=== PATIENT | female | born 1975 | race Caucasian/White ===

== ENCOUNTER 2016-09-16 22:50 | Emergency (ER) | payer OTHER ==
--- NOTE | 2016-09-17 05:15 | DIAGNOSTIC IMAGING REPORT ---
PROCEDURE: XR CHEST 1 VIEW INDICATION: CHEST PAIN TECHNIQUE: Portable AP view 11:25 p.m. COMPARISON: None. FINDINGS: Poor inspiration but lungs are clear. Heart and mediastinum are normal. Thorax is normal. IMPRESSION: 1. Poor inspiration. No acute changes.
--- NOTE | 2016-09-17 05:52 | DIAGNOSTIC IMAGING REPORT ---
PROCEDURE: US ABDOMEN ULTRASOUND-LIMITED INDICATION: EPIGASTRIC ABDOMINAL PAIN TECHNIQUE: Ceballos scale and color Doppler sonographic images of the abdomen were obtained. COMPARISON: Abdominal ultrasound 09/22/2008 FINDINGS: Enlarged liver (22 cm) with diffuse increased echogenicity, with focal sparing adjacent to the gallbladder. Normal gallbladder and CBD (5.5 mm). Negative Velazquez's sign. Pancreas normal as visualized. Aorta and IVC are patent. Normal hepatopetal flow. Normal right kidney measures 10.9 cm. IMPRESSION: 1. Hepatomegaly with steatosis
--- NOTE | 2016-09-17 06:23 | ED CLINICAL REPORT ---
Clinical Report - Physicians/Mid Levels [facility] [address] [place] [address] 09/16/2016 22:51 Patient: JULIA JACOB Arrived- By private vehicle. Historian- patient. HISTORY OF PRESENT ILLNESS Chief Complaint: CHEST PAIN. At its maximum, severity described as severe. When seen in the E.D., severity described as severe. Modifying factors. Not worsened by anything. Not relieved by anything. This started today and is still present (staying the same). It was abrupt in onset and has been constant but is not gone now. Onset during cleaning the house. It is described as burning and it is described as located in the central chest area. No radiation. No nausea, vomiting, difficulty breathing or diaphoresis. No additional chest pain. (reports no hemoptysis, recent trauma, or unilateral leg swelling.). Similar symptoms previously: None. Recent medical care: Not recently seen/assessed. REVIEW OF SYSTEMS No fever or chills. All systems otherwise negative, except as recorded above. PAST HISTORY See nurses notes. Denies the following risk factors for DVT/PE - history of DVT and pulmonary embolism, recent surgery, recent IL and congestive heart failure. Denies the following risk factors for DVT/PE - cancer, clotting disorder, estrogens, obesity and immobility. Denies the following risk factors for DVT/PE - advanced in age and vena cava filter. SOCIAL HISTORY Never smoker. No alcohol use or drug use. No recent travel. Is a local resident. FAMILY HISTORY History of heart disease (father's side of the family "everyone had hear problems"). ADDITIONAL NOTES The nursing notes have been reviewed. PHYSICAL EXAM Vital Signs: 09/16/2016 22:55 BP: 130/82. HR: 79. RR: 18. O2 saturation: 100%. Temp: 98 F. Blood pressure normal. Oxygen saturation normal. Appearance: Alert. Oriented X3. No acute distress. Eyes: Pupils equal, round and reactive to light. Eyes normal inspection. ENT: Ears normal. Nose normal. Pharynx normal. Neck: Normal inspection. Neck supple. CVS: Normal heart rate and rhythm. Heart sounds normal. Pulses normal. Respiratory: No respiratory distress. Breath sounds normal. Chest nontender. No rales, rhonchi or wheezes. Abdomen: Soft and nontender. Bowel sounds normal. Back: Normal external inspection. Skin: Skin warm and dry. Normal skin color. No rash. Normal skin turgor. Extremities: Extremities exhibit normal ROM. No lower extremity edema. LABS, X-RAYS, AND EKG EKG: No acute process. No acute ischemia. Normal sinus rhythm. Rate: 80. Normal P waves. First-degree atrioventricular block. Normal QRS complex. Normal axis. Normal ST and T waves, QT and QTc. The study has been interpreted contemporaneously. The study has been independently viewed by me. The EKG appears to be a good tracing. Chest X-ray: No acute disease. Normal lung markings present. Normal heart size. No infiltrate. Views: PA. The X-rays were independently viewed by me and interpreted contemporaneously by me. Prior films were not available for comparison. Abdominal Sonogram: (PROCEDURE: US ABDOMEN ULTRASOUND-LIMITED INDICATION: EPIGASTRIC ABDOMINAL PAIN TECHNIQUE: Ceballos scale and color Doppler sonographic images of the abdomen were obtained. COMPARISON: Abdominal ultrasound 09/22/2008 FINDINGS: Enlarged liver (22 cm) with diffuse increased echogenicity, with focal sparing adjacent to the gallbladder. Normal gallbladder and CBD (5.5 mm). Negative Velazquez's sign. Pancreas normal as visualized. Aorta and IVC are patent. Normal hepatopetal flow. Normal right kidney measures 10.9 cm. IMPRESSION: 1. Hepatomegaly with steatosis). The study was independently viewed by me and interpreted contemporaneously by me. The study was discussed with the radiologist (via pacs after patient discharged). Laboratory Tests: Troponin-I: (SUZI: 09/17/2016 02:10) ( [facility] [address] 09/17/2016 02:33) Final results Test Result Flag Units (Reference) TROPONIN I <0.05 ng/mL (0.00-1.5) TROPONIN REFERENCE RANGE:<0.1 NEGATIVE0.1-1.5 INDETERMINANT>1.5 POSITIVE Troponin-I: (SUZI: 09/17/2016 00:15) ( NygRcvd 09/17/2016 01:51) Final results Test Result Flag Units (Reference) TROPONIN I 0.05 ng/mL (0.00-1.5) TROPONIN REFERENCE RANGE:<0.1 NEGATIVE0.1-1.5 INDETERMINANT>1.5 POSITIVE CBC w Diff: (SUZI: 09/16/2016 23:10) ( MsgRcvd 09/16/2016 23:27) Final results Test Result Flag Units (Reference) WHITE BLOOD COUNT 9.9 K/uL (4.5-11.5) RED BLOOD COUNT 4.41 M/uL (4.00-5.20) HEMOGLOBIN 12.2 gm/dL (12.0-16.0) HEMATOCRIT 36.3 % (36.0-46.0) MEAN CELL VOLUME 82 fL (80-100) MEAN CORPUSCULAR HGB 28 pg (26-34) MEAN CORPUSCULAR HGB CONC 34 g/dL (31-37) RED CELL DISTRIBUTION WIDTH 13.9 % (11.6-14.8) PLATELET COUNT 205 K/uL (150-400) NEUTROPHIL % 52.5 % (50-75) LYMPH % 41.0 H % (25-40) MONO % 4.9 % (3-14) EOSINOPHIL % 1.2 % (0-4) BASOPHIL % 0.4 % (0-2) [id number]: (SUZI: 09/16/2016 23:10) ( MsgRcvd 09/16/2016 23:32) Final results Test Result Flag Units (Reference) D-DIMER QUANTITATIVE 0.37 ug/mLFEU (0.27-0.52) The primary value of this quantitative assay relates toits negative predictive value (i.e. exclusion) of pulmonaryembolism/deep vein thrombosis/DIC.Elevated levels of d-dimer may also occur with:, age, cancer, inflammation, liver disease,post-op, infection, hematoma, coronary disease, peripheralarteriopathy, bleeding disorders and thrombolytic treatment.Results should be correlated with other clinical andradiological data.Testing Methodology: Latex Immunoassay Troponin-I: (SUZI: 09/16/2016 23:33) ( MsgRcvd 09/16/2016 23:58) Final results Test Result Flag Units (Reference) TROPONIN I <0.05 L ng/mL (0.00-1.5) TROPONIN REFERENCE RANGE:<0.1 NEGATIVE0.1-1.5 INDETERMINANT>1.5 POSITIVE CMP: (SUZI: 09/16/2016 23:10) ( MsgRcvd 09/16/2016 23:34) Final results Test Result Flag Units (Reference) GLUCOSE 131 H mg/dL (70-110) BUN 15 mg/dL (7-18) CREATININE 1.2 mg/dL (0.6-1.3) Estimated GFR 52.36 mL/min Estimated GFR- >60 mL/min Note: Persistent reduction over 3 months in eGFR<60 mL/min/1.73 m2 defines CKD. Patients with eGFR values>=60 mL/min/1.73 m2 may also have CKD if evidence ofpersistent proteinuria. Additional information may be foundat [email or web address].org. SODIUM 139 mmol/L (136-145) POTASSIUM 3.0 L mmol/L (3.5-5.1) CHLORIDE 102 mmol/L (98-107) CARBON DIOXIDE 24 mmol/L (21-32) CALCIUM 8.6 mg/dL (8.5-10.1) TOTAL PROTEIN 7.5 g/dL (6.4-8.2) ALBUMIN 3.6 g/dL (3.3-5.0) BILIRUBIN, TOTAL 0.2 mg/dL (0.0-1.0) ALKALINE PHOSPHATASE 80 U/L (46-116) AST (SGOT) 14 L U/L (15-37) ALT (SGPT) 25 U/L (12-78) . PROGRESS AND PROCEDURES Course of Care: the patient is a pleasant 41-year-old female with no pertinent past medical history presenting for evaThe patient has somewhat atypical symptoms of chest pain. Patient is describing a burning sensation that starts from the lower chest and radiates up towards to the top of her chest. Onset of symptoms are relatively recent. Patient will need to set the troponin for evaluation of acute myocardial infarction. the patient was given a GI cocktail for possible reflux as the culprit for her symptoms. Patient will be evaluated after the medication has been provided. Patient is agreeable to the treatment and plan. Workup is noted to be negative at this point in time. EKG and chest x-ray as well as a first set of laboratory studies are unremarkable. The patient does have slight elevation in liver enzymes however patient is familiar with these and states that she has had a history of this. The GI cocktail did not help with her symptoms however and is requesting alternative types of treatments for the discomfort. Second troponin was resulted and also noted to be negative. The patient states that the chest pain is gone however is now reporting pain located to the epigastric area. She'll be evaluated with ultrasound for possible atypical presentation of acute cholecystitis. Patient is agreeable to the treatment plan. Different medications have been ordered for the patient's discomfort. An additional troponin is also been drawn as the patient will be here in the emergency department for a another several hour period of time while the ultrasound is being resulted. We needed to call in certified appliance service technician in for the procedure to be done. Patient is agreeable to the wait time. Workup does not show any acute abnormalities other than hepatic steatosis. No signs of acute cholecystitis. Patient was reevaluated and found to have improvement with her symptoms. Patient is a low-risk for any acute cardiac event. Patient is a good outpatient candidate. Referral to cardiology provided. Patient also noted to have referral to cardiology from her primary care Dr. Further information was given if the patient encountered difficulties with scheduling the stress test. Patient is 41 years old. Patient is also noted to be PE RC negative. Do not feel further workup for pulmonary embolism is warranted at this time. Discussed with the patient her workup, diagnosis, home care, follow-up, and return precautions. All questions have been answered. The patient expressed understanding of these instructions and was agreeable to them. Consult obtained. Cardiology - Dr. Delarosa. Disposition: Discharged. Condition: good. CLINICAL IMPRESSION Acute epigastric abdominal pain. Atypical chest pain .12 lead EKG performed. INSTRUCTIONS Warnings: GENERAL WARNINGS: Return or contact your physician immediately if your condition worsens or changes unexpectedly, if not improving as expected, or if other problems arise. SPECIFICALLY, return if you develop chest, neck, jaw, shoulder, arm, or back pain, difficulty breathing, a fluttering sensation in your chest, lightheadedness, fainting, excessive fatigue, or sudden sweating. Your Current Medications: CONTINUE TAKING THE FOLLOWING MEDICATIONS: Amitriptyline HCl Oral : 25 mg daily. Estradiol Oral : daily. Hydrochlorothiazide Oral. Levothyroxine Sodium Oral : daily, unknown dose. Lisinopril Oral. Progesterone*. Prescription Medications: Pepcid 20 mg: take 1 orally every 12 hours as needed for indigestion, upset stomach or heartburn. Dispense twenty (20). No refills. Substitution is permissible. OTC Medications: Aspirin 81 mg (available over the counter): take 1 orally every 24 hours. Dispense thirty (30). No refills. Follow-up: Return to the emergency department as needed. Follow up with a trade mark examiner as scheduled. Follow up with your doctor in three days. Reason for referral: recheck today's concerns. Follow up with doctor Dr. Loera. Reason for referral: Contact if you can not get your stress test in 2 - 3 days. Their number is . Summary of care provided to patient via paper. Screening today revealed the patient's blood pressure to be in the normal range. The patient should follow up with a primary care provider for blood pressure management. Understanding of the discharge instructions verbalized by patient. (Electronically signed by Golden Hemphill Dr. 09/24/2016 0:52)
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
--- NOTE | 2016-09-17 06:23 | ED ORDER SUMMARY ---
..... Patient: JULIA JACOB OrderSheet [facility] VisitID: [id number] [address] [place] [address] 41y, F Registration Date/Time: 09/16/2016 ORDER SHEET Weight: 99.7 kg (stated) Allergies: No Known Drug Allergy GENERAL ORDERS: CBC w Diff Urgent (23:17 09/16/2016 EInddagoberto R.N. verbal order read back to Ja Schaefer) (Ack 23:20 Tracy) (23:23 LMuller) CMP Urgent (23:17 09/16/2016 EInddagoberto R.N. verbal order read back to Ja Schaefer) (Ack 23:20 Tracy) (23:23 LMuller) D-Dimer Urgent (23:17 09/16/2016 EIjocelin Welch.N. verbal order read back to Ja Schaefer) (Ack 23:21 Tracy) (23:23 LMuller) EKG - ER Stat (23:17 09/16/2016 EIjocelin R.N. verbal order read back to Ja Schaefer) (23:20 Tracy) Chest 1V Urgent (23:18 09/16/2016 EIjocelin R.N. verbal order read back to Ja Schaefer) (Ack 23:21 Tracy) (23:22 LMuller) Troponin-I Urgent (23:32 09/16/2016 Ja Schaefer) (23:33 LMuller) Troponin-I (redraw 2 hours after first drawn) Urgent (00:52 09/17/2016 Ja Schaefer) (Ack 0:59 LMuller) (1:27 EIjocelin CastilloN.) Troponin-I Urgent (02:02 09/17/2016 Ja Schaefer) (Ack 2:07 LMuller) (2:12 LMuller) US Abdomen Limited (No) Urgent (02:57 09/17/2016 Ja Schaefer) (Ack 3:08 LMuller) (4:40 LMuller) Lipase Urgent (02:58 09/17/2016 Ja Schaefer) (Ack 3:08 LMuller) (3:09 LMuller) Consult - Rehab Assistant (02:58 09/17/2016 Ja Schaefer) (Ack 3:08 LMuller) (3:08 LMuller) MEDICATION ORDERS: GI Cocktail WHITE PO 30 mL (NOW) (23:26 09/16/2016 Ja Schaefer) (23:40 EInderisai R.N.) Potassium Chloride PO 60 meq (NOW) (00:59 09/17/2016 EInderisai R.N. verbal order read back to Ja Schaefer) (1:00 EInddagoberto R.N.) Zofran ODT PO 4 mg (NOW) (00:59 09/17/2016 EIjocelin R.N. verbal order read back to Ja Schaefer) (1:01 EInderisai R.N.) NitroGLYCERIN SL 0.4 mg (once now) (02:37 09/17/2016 Ja Schaefer) (2:39 EInderisai R.N.) Aspirin PO 325 mg (Do not crush or chew, NOW) (06:01 09/17/2016 Ja Schaefer) (Cancelled: Patient Refusal6:33 EInderisai R.N.) IV FLUIDS: IV Saline Lock (23:21 09/16/2016 Kian R.NJeffrey verbal order read back to Ja Schaefer) (23:21 EInderdeepakzen R.N.) Valium IV 5 mg (HIGH ALERT MEDICATION, NOW) (01:09 09/17/2016 Ja Schaefer) (Cancelled: Other1:10 Ja Schaefer) Morphine IV 4 mg (HIGH ALERT MEDICATION, NOW) (01:20 09/17/2016 Ja Schaefer) (1:26 EInderisai R.N.) Pepcid IV 20 mg/50mL (NOW) (01:20 09/17/2016 Ja Schaefer) (1:27 EInderbitzen R.N.) ORDER SHEET NOTES: [Electronically signed by Aicha Valadez R.N. (06:35 09/17/2016)] [Electronically signed by Golden Hemphill Dr. (00:52 09/24/2016)] [Electronically locked/signed by Aicha Valadez R.N. (06:35 09/17/2016)]
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
--- NOTE | 2016-09-17 06:23 | ED ORDER SUMMARY ---
..... Patient: JULIA JACOB OrderSheet [facility] VisitID: [id number] [address] [place] [address] 41y, F Registration Date/Time: 09/16/2016 ORDER SHEET Weight: 99.7 kg (stated) Allergies: No Known Drug Allergy GENERAL ORDERS: CBC w Diff Urgent (23:17 09/16/2016 EInddagoberto R.N. verbal order read back to Ja Schaefer) (Ack 23:20 Tracy) (23:23 LMuller) CMP Urgent (23:17 09/16/2016 EInddagoberto R.N. verbal order read back to Ja Schaefer) (Ack 23:20 Tracy) (23:23 LMuller) D-Dimer Urgent (23:17 09/16/2016 EIjocelin Welch.N. verbal order read back to Ja Schaefer) (Ack 23:21 Tracy) (23:23 LMuller) EKG - ER Stat (23:17 09/16/2016 EIjocelin R.N. verbal order read back to Ja Schaefer) (23:20 Tracy) Chest 1V Urgent (23:18 09/16/2016 EIjocelin R.N. verbal order read back to Ja Schaefer) (Ack 23:21 Tracy) (23:22 LMuller) Troponin-I Urgent (23:32 09/16/2016 Ja Schaefer) (23:33 LMuller) Troponin-I (redraw 2 hours after first drawn) Urgent (00:52 09/17/2016 Ja Schaefer) (Ack 0:59 LMuller) (1:27 EIjocelin CastilloN.) Troponin-I Urgent (02:02 09/17/2016 Ja Schaefer) (Ack 2:07 LMuller) (2:12 LMuller) US Abdomen Limited (No) Urgent (02:57 09/17/2016 Ja Schaefer) (Ack 3:08 LMuller) (4:40 LMuller) Lipase Urgent (02:58 09/17/2016 Ja Schaefer) (Ack 3:08 LMuller) (3:09 LMuller) Consult - Felt Hanger (02:58 09/17/2016 Ja Schaefer) (Ack 3:08 LMuller) (3:08 LMuller) MEDICATION ORDERS: GI Cocktail WHITE PO 30 mL (NOW) (23:26 09/16/2016 Ja Schaefer) (23:40 EInderisai R.N.) Potassium Chloride PO 60 meq (NOW) (00:59 09/17/2016 EInderisai R.N. verbal order read back to Ja Schaefer) (1:00 EInddagoberto R.N.) Zofran ODT PO 4 mg (NOW) (00:59 09/17/2016 EIjocelin R.N. verbal order read back to Ja Schaefer) (1:01 EInderisai R.N.) NitroGLYCERIN SL 0.4 mg (once now) (02:37 09/17/2016 Ja Schaefer) (2:39 EInderisai R.N.) Aspirin PO 325 mg (Do not crush or chew, NOW) (06:01 09/17/2016 Ja Schaefer) (Cancelled: Patient Refusal6:33 EInderisai R.N.) IV FLUIDS: IV Saline Lock (23:21 09/16/2016 Kian R.NJeffrey verbal order read back to Ja Schaefer) (23:21 EInderdeepakzen R.N.) Valium IV 5 mg (HIGH ALERT MEDICATION, NOW) (01:09 09/17/2016 Ja Schaefer) (Cancelled: Other1:10 Ja Schaefer) Morphine IV 4 mg (HIGH ALERT MEDICATION, NOW) (01:20 09/17/2016 Ja Schaefer) (1:26 EInderisai R.N.) Pepcid IV 20 mg/50mL (NOW) (01:20 09/17/2016 Ja Schaefer) (1:27 EInderbitzen R.N.) ORDER SHEET NOTES: [Electronically signed by Aicha Valadez R.N. (06:35 09/17/2016)] [Electronically signed by Golden Hemphill Dr. (00:52 09/24/2016)] [Electronically locked/signed by Aicha Valadez R.N. (06:35 09/17/2016)]
--- NOTE | 2016-09-24 00:53 | ED DISCHARGE INSTRUCTIONS ---
Patient: JULIA JACOB General Instructions [facility] VisitID: [id number] [place] [address] 41y, F Registration Date/Time: 09/16/2016 Acute epigastric abdominal pain. Atypical chest pain .12 lead EKG performed. INSTRUCTIONS Warnings: GENERAL WARNINGS: Return or contact your physician immediately if your condition worsens or changes unexpectedly, if not improving as expected, or if other problems arise. SPECIFICALLY, return if you develop chest, neck, jaw, shoulder, arm, or back pain, difficulty breathing, a fluttering sensation in your chest, lightheadedness, fainting, excessive fatigue, or sudden sweating. Your Current Medications: CONTINUE TAKING THE FOLLOWING MEDICATIONS: Amitriptyline HCl Oral : 25 mg daily. Estradiol Oral : daily. Hydrochlorothiazide Oral. Levothyroxine Sodium Oral : daily, unknown dose. Lisinopril Oral. Progesterone*. Prescription Medications: Pepcid 20 mg: take 1 orally every 12 hours as needed for indigestion, upset stomach or heartburn. Dispense twenty (20). No refills. Substitution is permissible. OTC Medications: Aspirin 81 mg (available over the counter): take 1 orally every 24 hours. Dispense thirty (30). No refills. Follow-up: Return to the emergency department as needed. Follow up with a diabetes trainer as scheduled. Follow up with your doctor in three days. Reason for referral: recheck today's concerns. Follow up with doctor Dr. Loera. Reason for referral: Contact if you can not get your stress test in 2 - 3 days. Their number is . Summary of care provided to patient via paper. Screening today revealed the patient's blood pressure to be in the normal range. The patient should follow up with a primary care provider for blood pressure management. Understanding of the discharge instructions verbalized by patient. ADDITIONAL INFORMATION Chest Pain, Uncertain Cause Chest pain can happen for a number of reasons. Sometimes the cause can not be determined. If yourcondition does not seem serious, and your pain does not appear to be coming from your heart, your doctor may recommend watching it closely. Sometimes the signs of a serious problem take more time to appear. Therefore, watch for the warning signs listed below. Home care After your visit, follow these recommendations: Rest today and avoid strenuous activity. Take any prescribed medicine as directed. Follow-up care Follow up with your doctor or this facility as instructed or if you do not start to feel better within 24 hours. Call 911 Get immediate medical attention if any of the following occur: A change in the type of pain: if it feels different, becomes more severe, lasts longer, or begins to spread into your shoulder, arm, neck, jaw or back Shortness of breath or increased pain with breathing Weakness, dizziness, or fainting Rapid heart beat Get prompt medical attention Call your doctor right away if any of the following occur: Cough with dark colored sputum (phlegm) or blood Fever of 100.4F(38C) or higher, or as directed by your health care provider Swelling, pain or redness in one leg Abdominal Pain,Possible Appendicitis [Repeat Exam, Female] Based on your visit today, the exact cause of your abdominal (stomach) pain is not certain. However, you do have some of the early signs of APPENDICITIS. Early in an appendix infection the symptoms can be similar to a simple "stomach ache" or "stomach flu". Therefore, the diagnosis can be hard to make. Since an appendix infection is a serious condition, it is important to know if this is the cause of your symptoms. WAITING for more time to pass and repeating the exam is the best way to find out whether you have appendicitis. Within the next 12-24 hours the cause of your stomach pain should become clear. It is important for you to watch for any new symptoms or worsening of your condition. (See below). Home Care: Rest until your next exam. No strenuous activities. Eat a diet low in fiber (called a low-residue diet). Foods allowed include refined breads, white rice, fruit and vegetable juices without pulp, tender meats. These foods will pass more easily through the intestine. Avoid whole-grain foods, whole fruits and vegetables, meats, seeds and nuts, fried or fatty foods, dairy, alcohol and spicy foods until your symptoms go away. In some cases, you may be asked not to eat or drink anything until you are re-examined. Return for another exam exactly as directed. Follow Up with your doctor or this facility as directed. Get Prompt Medical Attention if any of the following occur: Pain gets worse or moves to the right lower abdomen New or worsening vomiting or diarrhea Swelling of the abdomen Unable to pass stool for more than three days Fever of 100.4F (38C) or higher, or as directed by your healthcare provider Blood in vomit or bowel movements (dark red or black color) Weakness, dizziness or fainting Unexpected vaginal bleeding Famotidine Oral tablet What is this medicine? FAMOTIDINE (fa ROHIT ti dank) is a type of antihistamine that blocks the release of stomach acid. It is used to treat stomach or intestinal ulcers. It can also relieve heartburn from acid reflux. How should I use this medicine? Take this medicine by mouth with a glass of water. Follow the directions on the prescription label. If you only take this medicine once a day, take it at bedtime. Take your doses at regular intervals. Do not take your medicine more often than directed. Talk to your telecommunications linesworker regarding the use of this medicine in children. Special care may be needed. What side effects may I notice from receiving this medicine? Side effects that you should report to your doctor or health nurse behavioral health care as soon as possible: agitation, nervousness confusion hallucinations skin rash, itching Side effects that usually do not require medical attention (report to your doctor or health nurse behavioral health care if they continue or are bothersome): constipation diarrhea dizziness headache What may interact with this medicine? delavirdine itraconazole ketoconazole What if I miss a dose? If you miss a dose, take it as soon as you can. If it is almost time for your next dose, take only that dose. Do not take double or extra doses. Where should I keep my medicine? Keep out of the reach of children. Store at room temperature between 15 and 30 degrees C (59 and 86 degrees F). Do not freeze. Throw away any unused medicine after the expiration date. What should I tell my health care provider before I take this medicine? They need to know if you have any of these conditions: kidney or liver disease trouble swallowing an unusual or allergic reaction to famotidine, other medicines, foods, dyes, or preservatives or trying to get breast-feeding What should I watch for while using this medicine? Tell your doctor or health nurse behavioral health care if your condition does not start to get better or if it gets worse. Finish the full course of tablets prescribed, even if you feel better. Do not take with aspirin, ibuprofen or other antiinflammatory medicines. These can make your condition worse. Do not smoke cigarettes or drink alcohol. These cause irritation in your stomach and can increase the time it will take for ulcers to heal. If you get black, tarry stools or vomit up what looks like coffee grounds, call your doctor or health nurse behavioral health care at once. You may have a bleeding ulcer. Aspirin Oral tablet What is this medicine? ASPIRIN ( pir in) is a pain reliever. It is used to treat mild pain and fever. This medicine is also used as directed by a doctor to prevent and to treat heart attacks, to prevent strokes, and to treat arthritis or inflammation. How should I use this medicine? Take this medicine by mouth with a glass of water. Follow the directions on the package or prescription label. You can take this medicine with or without food. If it upsets your stomach, take it with food. Do not take your medicine more often than directed. Talk to your telecommunications linesworker regarding the use of this medicine in children. While this drug may be prescribed for children as young as 12 years of age for selected conditions, precautions do apply. Children and teenagers should not use this medicine to treat chicken pox or flu symptoms unless directed by a doctor. Patients over 65 years old may have a stronger reaction and need a smaller dose. What side effects may I notice from receiving this medicine? Side effects that you should report to your doctor or health nurse behavioral health care as soon as possible: allergic reactions like skin rash, itching or hives, swelling of the face, lips, or tongue breathing problems changes in hearing, ringing in the ears confusion general ill feeling or flu-like symptoms pain on swallowing redness, blistering, peeling or loosening of the skin, including inside the mouth or nose signs and symptoms of bleeding such as bloody or black, tarry stools; red or dark-brown urine; spitting up blood or brown material that looks like coffee grounds; red spots on the skin; unusual bruising or bleeding from the eye, gums, or nose trouble passing urine or change in the amount of urine unusually weak or tired yellowing of the eyes or skin Side effects that usually do not require medical attention (report to your doctor or health nurse behavioral health care if they continue or are bothersome): diarrhea or constipation nausea, vomiting stomach gas, heartburn What may interact with this medicine? Do not take this medicine with any of the following medications: cidofovir ketorolac probenecid This medicine may also interact with the following medications: alcohol alendronate bismuth subsalicylate flavocoxid herbal supplements like feverfew, garlic, alessia, ginkgo biloba, horse chestnut medicines for diabetes or glaucoma like acetazolamide, methazolamide medicines for gout medicines that treat or prevent blood clots like enoxaparin, heparin, ticlopidine, warfarin other aspirin and aspirin-like medicines NSAIDs, medicines for pain and inflammation, like ibuprofen or naproxen pemetrexed sulfinpyrazone varicella live vaccine What if I miss a dose? If you are taking this medicine on a regular schedule and miss a dose, take it as soon as you can. If it is almost time for your next dose, take only that dose. Do not take double or extra doses. Where should I keep my medicine? Keep out of the reach of children. Store at room temperature between 15 and 30 degrees C (59 and 86 degrees F). Protect from heat and moisture. Do not use this medicine if it has a strong vinegar smell. Throw away any unused medicine after the expiration date. What should I tell my health care provider before I take this medicine? They need to know if you have any of these conditions: anemia asthma bleeding problems child with chickenpox, the flu, or other viral infection diabetes gout if you frequently drink alcohol containing drinks kidney disease liver disease low level of vitamin K lupus smoke tobacco stomach ulcers or other problems an unusual or allergic reaction to aspirin, tartrazine dye, other medicines, dyes, or preservatives or trying to get breast-feeding What should I watch for while using this medicine? If you are treating yourself for pain, tell your doctor or health nurse behavioral health care if the pain lasts more than 10 days, if it gets worse, or if there is a new or different kind of pain. Tell your doctor if you see redness or swelling. Also, check with your doctor if you have a fever that lasts for more than 3 days. Only take this medicine to prevent heart attacks or blood clotting if prescribed by your doctor or health nurse behavioral health care. Do not take aspirin or aspirin-like medicines with this medicine. Too much aspirin can be dangerous. Always read the labels carefully. This medicine can irritate your stomach or cause bleeding problems. Do not smoke cigarettes or drink alcohol while taking this medicine. Do not lie down for 30 minutes after taking this medicine to prevent irritation to your throat. If you are scheduled for any medical or dental procedure, tell your healthcare provider that you are taking this medicine. You may need to stop taking this medicine before the procedure. You have been given the following additional information: Chest Pain, Uncertain Cause Abdominal Pain, Possible Appendicitis (Female) Famotidine Oral tablet Aspirin Oral tablet (Electronically signed by Golden Hemphill Dr. 09/24/2016 0:52)
--- NOTE | 2016-09-24 00:53 | ED MED RECONCILIATION SUMMARY ---
Patient: JULIA JACOB Medication Reconciliation Report [facility] VisitID: [id number] [address] [place] [address] 41y, F Registration Date/Time: 09/16/2016 Weight: 99.7 kg Height/Length: 70 in. BMI: 31.5 ALLERGIES: No Known Drug Allergy The patient's Home Medications are listed below: CONTINUE TAKING THE FOLLOWING MEDICATIONS: Amitriptyline HCl Oral 25 mg, daily Estradiol Oral, daily Hydrochlorothiazide Oral Levothyroxine Sodium Oral, daily, unknown dose Lisinopril Oral Progesterone The source(s) of the original Home Medication information: patient The following Medications were given to the patient in the Emergency Department: GI COCKTAIL WHITE [PO] PO 30 mL, administered: 09/16/2016 11:38:00 PM Potassium Chloride [PO] PO 60 meq, administered: 09/17/2016 1:00:00 AM Zofran ODT [PO] PO 4 mg, administered: 09/17/2016 1:00:00 AM Morphine [IVP] IVP 4 mg, administered: 09/17/2016 1:24:00 AM Pepcid [IVPB] IVPB bolus 0, then 20 mg 150 mL/hr, administered: 09/17/2016 1:25:00 AM Nitroglycerin [SL] SL 0.4 mg, administered: 09/17/2016 2:39:00 AM The following Medications were prescribed to the patient: Pepcid 20 mg: take 1 orally every 12 hours as needed for indigestion, upset stomach or heartburn. Dispense twenty (20). No refills. Substitution is permissible. -- Golden Hemphill Dr. Aspirin 81 mg (available over the counter): take 1 orally every 24 hours. Dispense thirty (30). No refills. -- Golden Hemphill Dr.
--- NOTE | 2016-09-24 00:53 | ED MED RECONCILIATION SUMMARY ---
Patient: JULIA JACOB Medication Reconciliation Report [facility] VisitID: [id number] [address] [place] [address] 41y, F Registration Date/Time: 09/16/2016 Weight: 99.7 kg Height/Length: 70 in. BMI: 31.5 ALLERGIES: No Known Drug Allergy The patient's Home Medications are listed below: CONTINUE TAKING THE FOLLOWING MEDICATIONS: Amitriptyline HCl Oral 25 mg, daily Estradiol Oral, daily Hydrochlorothiazide Oral Levothyroxine Sodium Oral, daily, unknown dose Lisinopril Oral Progesterone The source(s) of the original Home Medication information: patient The following Medications were given to the patient in the Emergency Department: GI COCKTAIL WHITE [PO] PO 30 mL, administered: 09/16/2016 11:38:00 PM Potassium Chloride [PO] PO 60 meq, administered: 09/17/2016 1:00:00 AM Zofran ODT [PO] PO 4 mg, administered: 09/17/2016 1:00:00 AM Morphine [IVP] IVP 4 mg, administered: 09/17/2016 1:24:00 AM Pepcid [IVPB] IVPB bolus 0, then 20 mg 150 mL/hr, administered: 09/17/2016 1:25:00 AM Nitroglycerin [SL] SL 0.4 mg, administered: 09/17/2016 2:39:00 AM The following Medications were prescribed to the patient: Pepcid 20 mg: take 1 orally every 12 hours as needed for indigestion, upset stomach or heartburn. Dispense twenty (20). No refills. Substitution is permissible. -- Golden Hemphill Dr. Aspirin 81 mg (available over the counter): take 1 orally every 24 hours. Dispense thirty (30). No refills. -- Golden Hemphill Dr.
--- NOTE | 2016-09-24 00:53 | ED MAR SUMMARY ---
..... Medication Administration Record [facility] [address] [place] [address] Patient: JULIA JACOB Visit ID: [id number] 41y, F Weight: 99.7 kg Height/Length: 70 in BMI: 31.5 ALLERGIES: No Known Drug Allergy Given 23:38 09/16/2016 Aicha Valadez R.N. Medication Administered: GI COCKTAIL WHITE [PO] (SIMETHICONE), Dose: 30 mL Oral Suspension PO. Medication Ordered: GI Cocktail WHITE PO 30 mL (NOW). Given 01:00 09/17/2016 Aicha Valadez R.N. Medication Administered: POTASSIUM CHLORIDE [PO] (POTASSIUM CHLORIDE ER), Dose: 60 meq Tablets PO. Medication Ordered: Potassium Chloride PO 60 meq (NOW). Given 01:00 09/17/2016 Aicha Valadez R.N. Medication Administered: ZOFRAN ODT [PO] (ONDANSETRON), Dose: 4 mg Oral Disintegrating Tablets PO. Medication Ordered: Zofran ODT PO 4 mg (NOW). Given 01:24 09/17/2016 Aicha Valadez R.N. Medication Administered: MORPHINE [IVP], Dose: 4 mg IVP over 1 minute(s), Site: #1 right hand. Medication Ordered: Morphine IV 4 mg (HIGH ALERT MEDICATION, NOW). Start 01:25 09/17/2016 Aicha Valadez R.N. Medication Administered: PEPCID [IVPB], Dose: 20 mg IVPB over 15 minute(s), Rate: 150 mL/hr, Dispensed: 50 mL bag, Site: #1 right hand. Medication Ordered: Pepcid IV 20 mg/50mL (NOW). Given 02:39 09/17/2016 Aicha Valadez R.N. Medication Administered: NITROGLYCERIN [SL], Dose: 0.4 mg Tablets SL. Medication Ordered: NitroGLYCERIN SL 0.4 mg (once now).
--- NOTE | 2016-09-24 00:53 | ED DISCHARGE INSTRUCTIONS ---
Patient: JULIA JACOB General Instructions [facility] VisitID: [id number] [place] [address] 41y, F Registration Date/Time: 09/16/2016 Acute epigastric abdominal pain. Atypical chest pain .12 lead EKG performed. INSTRUCTIONS Warnings: GENERAL WARNINGS: Return or contact your physician immediately if your condition worsens or changes unexpectedly, if not improving as expected, or if other problems arise. SPECIFICALLY, return if you develop chest, neck, jaw, shoulder, arm, or back pain, difficulty breathing, a fluttering sensation in your chest, lightheadedness, fainting, excessive fatigue, or sudden sweating. Your Current Medications: CONTINUE TAKING THE FOLLOWING MEDICATIONS: Amitriptyline HCl Oral : 25 mg daily. Estradiol Oral : daily. Hydrochlorothiazide Oral. Levothyroxine Sodium Oral : daily, unknown dose. Lisinopril Oral. Progesterone*. Prescription Medications: Pepcid 20 mg: take 1 orally every 12 hours as needed for indigestion, upset stomach or heartburn. Dispense twenty (20). No refills. Substitution is permissible. OTC Medications: Aspirin 81 mg (available over the counter): take 1 orally every 24 hours. Dispense thirty (30). No refills. Follow-up: Return to the emergency department as needed. Follow up with a cutter grind tool technician as scheduled. Follow up with your doctor in three days. Reason for referral: recheck today's concerns. Follow up with doctor Dr. Loera. Reason for referral: Contact if you can not get your stress test in 2 - 3 days. Their number is . Summary of care provided to patient via paper. Screening today revealed the patient's blood pressure to be in the normal range. The patient should follow up with a primary care provider for blood pressure management. Understanding of the discharge instructions verbalized by patient. ADDITIONAL INFORMATION Chest Pain, Uncertain Cause Chest pain can happen for a number of reasons. Sometimes the cause can not be determined. If yourcondition does not seem serious, and your pain does not appear to be coming from your heart, your doctor may recommend watching it closely. Sometimes the signs of a serious problem take more time to appear. Therefore, watch for the warning signs listed below. Home care After your visit, follow these recommendations: Rest today and avoid strenuous activity. Take any prescribed medicine as directed. Follow-up care Follow up with your doctor or this facility as instructed or if you do not start to feel better within 24 hours. Call 911 Get immediate medical attention if any of the following occur: A change in the type of pain: if it feels different, becomes more severe, lasts longer, or begins to spread into your shoulder, arm, neck, jaw or back Shortness of breath or increased pain with breathing Weakness, dizziness, or fainting Rapid heart beat Get prompt medical attention Call your doctor right away if any of the following occur: Cough with dark colored sputum (phlegm) or blood Fever of 100.4F(38C) or higher, or as directed by your health care provider Swelling, pain or redness in one leg Abdominal Pain,Possible Appendicitis [Repeat Exam, Female] Based on your visit today, the exact cause of your abdominal (stomach) pain is not certain. However, you do have some of the early signs of APPENDICITIS. Early in an appendix infection the symptoms can be similar to a simple "stomach ache" or "stomach flu". Therefore, the diagnosis can be hard to make. Since an appendix infection is a serious condition, it is important to know if this is the cause of your symptoms. WAITING for more time to pass and repeating the exam is the best way to find out whether you have appendicitis. Within the next 12-24 hours the cause of your stomach pain should become clear. It is important for you to watch for any new symptoms or worsening of your condition. (See below). Home Care: Rest until your next exam. No strenuous activities. Eat a diet low in fiber (called a low-residue diet). Foods allowed include refined breads, white rice, fruit and vegetable juices without pulp, tender meats. These foods will pass more easily through the intestine. Avoid whole-grain foods, whole fruits and vegetables, meats, seeds and nuts, fried or fatty foods, dairy, alcohol and spicy foods until your symptoms go away. In some cases, you may be asked not to eat or drink anything until you are re-examined. Return for another exam exactly as directed. Follow Up with your doctor or this facility as directed. Get Prompt Medical Attention if any of the following occur: Pain gets worse or moves to the right lower abdomen New or worsening vomiting or diarrhea Swelling of the abdomen Unable to pass stool for more than three days Fever of 100.4F (38C) or higher, or as directed by your healthcare provider Blood in vomit or bowel movements (dark red or black color) Weakness, dizziness or fainting Unexpected vaginal bleeding Famotidine Oral tablet What is this medicine? FAMOTIDINE (fa ROHIT ti dank) is a type of antihistamine that blocks the release of stomach acid. It is used to treat stomach or intestinal ulcers. It can also relieve heartburn from acid reflux. How should I use this medicine? Take this medicine by mouth with a glass of water. Follow the directions on the prescription label. If you only take this medicine once a day, take it at bedtime. Take your doses at regular intervals. Do not take your medicine more often than directed. Talk to your information systems coordinator regarding the use of this medicine in children. Special care may be needed. What side effects may I notice from receiving this medicine? Side effects that you should report to your doctor or health senior care provider as soon as possible: agitation, nervousness confusion hallucinations skin rash, itching Side effects that usually do not require medical attention (report to your doctor or health senior care provider if they continue or are bothersome): constipation diarrhea dizziness headache What may interact with this medicine? delavirdine itraconazole ketoconazole What if I miss a dose? If you miss a dose, take it as soon as you can. If it is almost time for your next dose, take only that dose. Do not take double or extra doses. Where should I keep my medicine? Keep out of the reach of children. Store at room temperature between 15 and 30 degrees C (59 and 86 degrees F). Do not freeze. Throw away any unused medicine after the expiration date. What should I tell my health care provider before I take this medicine? They need to know if you have any of these conditions: kidney or liver disease trouble swallowing an unusual or allergic reaction to famotidine, other medicines, foods, dyes, or preservatives or trying to get breast-feeding What should I watch for while using this medicine? Tell your doctor or health senior care provider if your condition does not start to get better or if it gets worse. Finish the full course of tablets prescribed, even if you feel better. Do not take with aspirin, ibuprofen or other antiinflammatory medicines. These can make your condition worse. Do not smoke cigarettes or drink alcohol. These cause irritation in your stomach and can increase the time it will take for ulcers to heal. If you get black, tarry stools or vomit up what looks like coffee grounds, call your doctor or health senior care provider at once. You may have a bleeding ulcer. Aspirin Oral tablet What is this medicine? ASPIRIN ( pir in) is a pain reliever. It is used to treat mild pain and fever. This medicine is also used as directed by a doctor to prevent and to treat heart attacks, to prevent strokes, and to treat arthritis or inflammation. How should I use this medicine? Take this medicine by mouth with a glass of water. Follow the directions on the package or prescription label. You can take this medicine with or without food. If it upsets your stomach, take it with food. Do not take your medicine more often than directed. Talk to your information systems coordinator regarding the use of this medicine in children. While this drug may be prescribed for children as young as 12 years of age for selected conditions, precautions do apply. Children and teenagers should not use this medicine to treat chicken pox or flu symptoms unless directed by a doctor. Patients over 65 years old may have a stronger reaction and need a smaller dose. What side effects may I notice from receiving this medicine? Side effects that you should report to your doctor or health senior care provider as soon as possible: allergic reactions like skin rash, itching or hives, swelling of the face, lips, or tongue breathing problems changes in hearing, ringing in the ears confusion general ill feeling or flu-like symptoms pain on swallowing redness, blistering, peeling or loosening of the skin, including inside the mouth or nose signs and symptoms of bleeding such as bloody or black, tarry stools; red or dark-brown urine; spitting up blood or brown material that looks like coffee grounds; red spots on the skin; unusual bruising or bleeding from the eye, gums, or nose trouble passing urine or change in the amount of urine unusually weak or tired yellowing of the eyes or skin Side effects that usually do not require medical attention (report to your doctor or health senior care provider if they continue or are bothersome): diarrhea or constipation nausea, vomiting stomach gas, heartburn What may interact with this medicine? Do not take this medicine with any of the following medications: cidofovir ketorolac probenecid This medicine may also interact with the following medications: alcohol alendronate bismuth subsalicylate flavocoxid herbal supplements like feverfew, garlic, alessia, ginkgo biloba, horse chestnut medicines for diabetes or glaucoma like acetazolamide, methazolamide medicines for gout medicines that treat or prevent blood clots like enoxaparin, heparin, ticlopidine, warfarin other aspirin and aspirin-like medicines NSAIDs, medicines for pain and inflammation, like ibuprofen or naproxen pemetrexed sulfinpyrazone varicella live vaccine What if I miss a dose? If you are taking this medicine on a regular schedule and miss a dose, take it as soon as you can. If it is almost time for your next dose, take only that dose. Do not take double or extra doses. Where should I keep my medicine? Keep out of the reach of children. Store at room temperature between 15 and 30 degrees C (59 and 86 degrees F). Protect from heat and moisture. Do not use this medicine if it has a strong vinegar smell. Throw away any unused medicine after the expiration date. What should I tell my health care provider before I take this medicine? They need to know if you have any of these conditions: anemia asthma bleeding problems child with chickenpox, the flu, or other viral infection diabetes gout if you frequently drink alcohol containing drinks kidney disease liver disease low level of vitamin K lupus smoke tobacco stomach ulcers or other problems an unusual or allergic reaction to aspirin, tartrazine dye, other medicines, dyes, or preservatives or trying to get breast-feeding What should I watch for while using this medicine? If you are treating yourself for pain, tell your doctor or health senior care provider if the pain lasts more than 10 days, if it gets worse, or if there is a new or different kind of pain. Tell your doctor if you see redness or swelling. Also, check with your doctor if you have a fever that lasts for more than 3 days. Only take this medicine to prevent heart attacks or blood clotting if prescribed by your doctor or health senior care provider. Do not take aspirin or aspirin-like medicines with this medicine. Too much aspirin can be dangerous. Always read the labels carefully. This medicine can irritate your stomach or cause bleeding problems. Do not smoke cigarettes or drink alcohol while taking this medicine. Do not lie down for 30 minutes after taking this medicine to prevent irritation to your throat. If you are scheduled for any medical or dental procedure, tell your healthcare provider that you are taking this medicine. You may need to stop taking this medicine before the procedure. You have been given the following additional information: Chest Pain, Uncertain Cause Abdominal Pain, Possible Appendicitis (Female) Famotidine Oral tablet Aspirin Oral tablet (Electronically signed by Golden Hemphill Dr. 09/24/2016 0:52)
--- NOTE | 2016-09-24 00:53 | ED MAR SUMMARY ---
..... Medication Administration Record [facility] [address] [place] [address] Patient: JULIA JACOB Visit ID: [id number] 41y, F Weight: 99.7 kg Height/Length: 70 in BMI: 31.5 ALLERGIES: No Known Drug Allergy Given 23:38 09/16/2016 Aicha Valadez R.N. Medication Administered: GI COCKTAIL WHITE [PO] (SIMETHICONE), Dose: 30 mL Oral Suspension PO. Medication Ordered: GI Cocktail WHITE PO 30 mL (NOW). Given 01:00 09/17/2016 Aicha Valadez R.N. Medication Administered: POTASSIUM CHLORIDE [PO] (POTASSIUM CHLORIDE ER), Dose: 60 meq Tablets PO. Medication Ordered: Potassium Chloride PO 60 meq (NOW). Given 01:00 09/17/2016 Aicha Valadez R.N. Medication Administered: ZOFRAN ODT [PO] (ONDANSETRON), Dose: 4 mg Oral Disintegrating Tablets PO. Medication Ordered: Zofran ODT PO 4 mg (NOW). Given 01:24 09/17/2016 Aicha Valadez R.N. Medication Administered: MORPHINE [IVP], Dose: 4 mg IVP over 1 minute(s), Site: #1 right hand. Medication Ordered: Morphine IV 4 mg (HIGH ALERT MEDICATION, NOW). Start 01:25 09/17/2016 Aicha Valadez R.N. Medication Administered: PEPCID [IVPB], Dose: 20 mg IVPB over 15 minute(s), Rate: 150 mL/hr, Dispensed: 50 mL bag, Site: #1 right hand. Medication Ordered: Pepcid IV 20 mg/50mL (NOW). Given 02:39 09/17/2016 Aicha Valadez R.N. Medication Administered: NITROGLYCERIN [SL], Dose: 0.4 mg Tablets SL. Medication Ordered: NitroGLYCERIN SL 0.4 mg (once now).
== END 2016-09-17 06:35 | disposition home or self-care (01) ==
LOC: ED SRH 22:50
DX: R10.13 Epigastric pain (principal); R07.89 Other chest pain; I10 Essential (primary) hypertension
CPT/HCPCS: 90100; 90616; 91556; 92235; 95059